=== PATIENT | male | born 1955 | race Caucasian/White ===

== ENCOUNTER → 2017-10-06 | Outpatient (CLI) | payer OTHER ==
[2015-07-27 05:36] VITALS: BP 147/74
[~2017-10-06] MED LIST: ALFU10TA23 PO; BUPIVACAINE MPF 0.5% 30 ML VIAL. ONE; CIPR500T94 PO; HYDR-971 PO; LEVO750T31 PO; LISI-379 PO; LOSA1TAB25 PO; METO-239 PO; PHEN-318 PO; SULF1TAB24 PO; methylPREDNISolone ACETATE 40 MG/ML VIAL. ONE
== END | disposition home or self-care (01) ==
LOC: SURG 14:02
PROVIDERS: ATTEND Anesthesiology Pain Medicine
DX: M79.1 Myalgia (principal); G89.29 Other chronic pain; M54.2 Cervicalgia; Z72.89 Other problems related to lifestyle; N40.0 Benign prostatic hyperplasia without lower urinary tract symptoms; Z79.899 Other long term (current) drug therapy
CPT/HCPCS: 20553; J1030; J3490; 20552

== ENCOUNTER → 2019-03-30 | Outpatient (CLI) | payer OTHER ==
[2015-07-27 05:36] VITALS: BP 147/74
[~2019-03-30] MED LIST changes: -BUPIVACAINE MPF 0.5% 30 ML VIAL. ONE; +HYDR-3165 PO; -HYDR-971 PO; -methylPREDNISolone ACETATE 40 MG/ML VIAL. ONE
--- NOTE | 2019-03-30 14:31 | RAD ---
EXAM: Lumbar spine CT without contrast. HISTORY: Radiculopathy. TECHNIQUE: Computed tomographic images of the lumbar spine were obtained without contrast. Multiplanar reformatting was performed. *One or more of the following individualized dose reduction techniques were utilized for this examination: 1. Automated exposure control. 2. Adjustment of the mA and/or kV according to patient size. 3. Use of iterative reconstruction technique. COMPARISON: MRI dated 12/19/[address] dated 05/15/2009. FINDINGS: There is grade 1 anterolisthesis of L4 on L5, measuring 4 mm. There is 3 mm retrolisthesis of L2 on L3 and L5 on S1. There is mild scoliosis. There is degenerative endplate remodeling at all levels. There is a vacuum phenomenon at L3-L4 and L4-L5. There is no suspicious osseous lesion or fracture. There are dorsal column stimulator leads extending from a generator within the left flank cephalad beyond the [id number]. These enter the dorsal aspect of the central canal at T12-L1. There is right basilar atelectasis. There are suspected multiple left renal parapelvic cysts. There is a 1 mL nonobstructing left renal stone. At L1-L2, there is no stenosis. At L2-L3, there is a disc bulge and endplate remodeling. There is mild left facet arthropathy. There is minimal central canal stenosis. At L3-L4, there is a disc bulge and endplate remodeling. There is mild retrolisthesis. There is mild bilateral foraminal stenosis. There is mild central canal stenosis. At L4-L5, there is a disc bulge and endplate remodeling. There is severe right and mild left facet arthropathy. There is grade 1 anterolisthesis. There is moderate right and moderate to severe left foraminal stenosis. There is moderate to severe central canal stenosis. At L5-S1, there is a disc bulge and endplate osteophytosis. There is mild retrolisthesis. There is moderate bilateral foraminal stenosis. IMPRESSION: 1. Multilevel degenerative change involving the lumbar spine, described in detail above. This is associated with mild bilateral foraminal and central canal stenosis at L3-L4, moderate right and moderate to severe left foraminal and moderate to severe central canal stenosis L4-L5, and moderate bilateral foraminal stenosis at L5-S1. These findings are similar compared to the prior MRI, allowing for differences in imaging modality. 2. Grade 1 anterolisthesis of L4 and L5 and slight retrolisthesis of L3 on L4 and L5 on S1. 3. Partial visualization of a dorsal column stimulator. 4. Multiple suspected left renal parapelvic cysts. Electronically signed by: Mildred Mullins MD (03/30/2019 2:28 PM) [facility] [place]
== END | disposition home or self-care (01) ==
LOC: CT 12:52
PROVIDERS: ATTEND Anesthesiology
DX: M51.16 Intervertebral disc disorders with radiculopathy, lumbar region (principal); M53.3 Sacrococcygeal disorders, not elsewhere classified; M48.07 Spinal stenosis, lumbosacral region; M43.17 Spondylolisthesis, lumbosacral region; N20.0 Calculus of kidney; J98.11 Atelectasis
CPT/HCPCS: 72131